=== PATIENT | male | born 1980 | race African-American/Black ===

== ENCOUNTER 2018-05-21 18:11 | Inpatient (IN) ==
[2018-05-21] MEDS ORDERED: SODIUM CHLORIDE 0.9% 500 ML IV STA (18:34)
[2018-05-21] MEDS ORDERED: ALUM/MAG/SIMETH/LIDO VISC 1:1 30 ML BOTTLE PO STA (18:34)
[2018-05-21] MEDS ORDERED: ONDANSETRON 4 MG/2 ML VIAL IV STA (18:34)
[2018-05-21] MEDS ORDERED: PANTOPRAZOLE 40 MG VIAL IV STA (18:34)
[2018-05-21] MEDS ORDERED: HYDROmorphone 2 MG/1 ML VIAL IV STA (18:34)
[2018-05-21 19:13] LABS: Basophils % 0.2 % (0.0-0.8); Eosinophils # 0.1 10*3/uL (0.0-0.87); Eosinophils % 0.5 % (0.00-10.9); Hematocrit 46.7 VOL% (42.0-52.0); Hemoglobin 15.1 GM/DL (14.0-18.0); Immature Granulocytes % 0.4 %; Immature Granulocytes Absolute 0.04 #; Lymphocytes # 1.6 10*3/uL (1.4-4.0); Lymphocytes % 17.5 % (21.2-54.2); Mean Corpuscular HGB Conc 32.3 GM/DL (32-36); Mean Corpuscular Hemoglobin 26 PG (27-34); Mean Corpuscular Volume 79.2 FL (87-102); Mean Platelet Volume 11.7 FL (9.6-12.0); Monocytes # 0.6 10*3/uL (0.11-0.8); Monocytes % 6.2 % (1.7-12.7); Neutrophils % 75.2 % (38.7-73.9); Platelet Count 226 T/CUMM (130-400); Red Cell Distribution Width 11.9 % (9.3-17.3); White Blood Count 9.4 T/CUMM (4-12)
[2018-05-21 19:42] LABS: Alanine Aminotransferase 32 U/L (16-61); Alkaline Phosphatase 112 U/L (45-117); Amylase 94 U/L (25-115); Aspartate Amino Transferase 17 U/L (0-37); Blood Urea Nitrogen 13 MG/DL (7-18); Calcium 9.7 MG/DL (8.5-10.1); Glucose 306 MG/DL (74-106); Potassium 3.9 MMOL/L (3.5-5.1); Sodium 136 MMOL/L (136-145); Total Protein 8.5 G/DL (6.4-8.3)
[2018-05-21 19:49] LABS: Lactic Acid 3.3 MMOL/L (0.4-2.0)
[2018-05-21] MEDS ORDERED: PIPERACILLIN/TAZOBACTAM 3,375 MG in SODIUM CHLORIDE 0.9% 100 ML IV STA (20:04)
[2018-05-21 21:08] LABS: Apearance,Urine CLEAR (Clear); Bilirubin,Urine Negative (Negative); Blood, Urine Negative (Negative); Glucose,Urine (UA) >=500 mg/dL (Negative); Granular Casts,Urine 1 /LPF (0-1); Hyaline Casts,Urine 1 /LPF (0-3); Ketones,Urine 5 mg/dL (Negative); Nitrite,Urine Negative (Negative); Protein,Urine 100 MG/DL; RBC,Urine 1 /HPF (0-4); Squamous Epithelial Cell,Urine Occasional /HPF (0-10); Urine Color Yellow (Yellow); Urine Specific Gravity > 1.060 (1.001-1.035); Urine Urobilinogen < 2.0 EU/DL (0.2-1.0); WBC,Urine 1 /HPF (0-6)
[2018-05-21] MEDS ORDERED: ACETAMINOPHEN 325 MG TABLET PO PRN (21:54)
[2018-05-21] MEDS ORDERED: ONDANSETRON 4 MG/2 ML VIAL IV PRN ×2 (21:54→22:25)
[2018-05-21] MEDS ORDERED: hydrALAZINE 20 MG/1 ML VIAL IV STA ×2 (22:13→22:34)
[2018-05-21] MEDS: HYDROmorphone 2 MG/1 ML VIAL IV PRN ×2 (22:30→22:35)
[2018-05-21] MEDS: LACTATED RINGERS 1,000 ML IV SCH (23:30)
[2018-05-21] MEDS ORDERED: PROPOFOL 200 MG/20 ML VIAL IV ONE (23:31)
[2018-05-21] MEDS ORDERED: SEVOFLURANE 1 UNIT/15 MINUTE INH ONE (23:31)
[2018-05-21] MEDS ORDERED: fentaNYL 100 MCG/2 ML VIAL ONE (23:31)
[2018-05-21] MEDS ORDERED: LIDOCAINE 2% TOP JELLY 5 ML TUBE TOP ONE (23:31)
[2018-05-21] MEDS ORDERED: ONDANSETRON 4 MG/2 ML VIAL ONE (23:32)
[2018-05-21] MEDS ORDERED: KETOROLAC 30 MG/1 ML VIAL ONE (23:32)
[2018-05-21] MEDS ORDERED: PHENYLEPHRINE 0.5% NASAL SPRAY 15 ML BOTTLE BOTH NARES ONE (23:32)
[2018-05-21] MEDS ORDERED: MIDAZOLAM 2 MG/2 ML VIAL ONE (23:32)
[2018-05-21] MEDS ORDERED: DEXAMETHASONE 10 MG/1 ML VIAL ONE (23:32)
[2018-05-21] MEDS ORDERED: LACTATED RINGERS 2,000 ML IV ONE (23:33)
[2018-05-21] MEDS ORDERED: ROCURONIUM 100 MG/10 ML VIAL IV ONE (23:33)
[2018-05-21] MEDS ORDERED: GLYCOPYRROLATE 0.4 MG/2 ML VIAL ONE (23:33)
[2018-05-21] MEDS ORDERED: NEOSTIGMINE 10 MG/10 ML VIAL ONE (23:33)
[2018-05-21] MEDS ORDERED: SUCCINYLCHOLINE 200 MG/10 ML VIAL ONE (23:33)
[2018-05-21] MEDS ORDERED: ACETAMINOPHEN 1,000 MG/100 ML VIAL IV ONE (23:33)
[2018-05-22] MEDS: KETOROLAC 15 MG/1 ML VIAL IV SCH ×5 (00:04→23:30)
[2018-05-22] MEDS ORDERED: PNEUMOCOCCAL VACCINE (23 VALENT) 0.5 ML VIAL IM ONE (00:46)
[2018-05-22] MEDS: LACTATED RINGERS 1,000 ML IV SCH ×3 (05:01→22:02)
[2018-05-22 05:30] LABS: Calcium 8.5 MG/DL (8.5-10.1); Osmolality,Calculated 284.1 MOS/KG (273-304)
[2018-05-22 05:33] LABS: Basophils % 0.1 % (0.0-0.8); Hematocrit 42.4 VOL% (42.0-52.0); Hemoglobin 13.4 GM/DL (14.0-18.0); Immature Granulocytes % 0.4 %; Immature Granulocytes Absolute 0.04 #; Lymphocytes # 0.5 10*3/uL (1.4-4.0); Lymphocytes % 5.6 % (21.2-54.2); Mean Corpuscular HGB Conc 31.6 GM/DL (32-36); Mean Corpuscular Hemoglobin 25 PG (27-34); Mean Platelet Volume 12.1 FL (9.6-12.0); Monocytes # 0.1 10*3/uL (0.11-0.8); Neutrophils # 8.5 10*3/uL (1.4-7.4); Neutrophils % 92.9 % (38.7-73.9); Platelet Count 208 T/CUMM (130-400); Red Cell Distribution Width 11.7 % (9.3-17.3); White Blood Count 9.2 T/CUMM (4-12)
[2018-05-22 06:40] LABS: Anisocytosis Slight; Band Neutrophils 4 % (0-10); Lymphocytes 4 % (20-55); Macrocytosis Slight; Platelet Estimate Normal; Segmented Neutrophils 90 % (50-85); Total Cells Counted 100
[2018-05-22] MEDS: PANTOPRAZOLE 40 MG TABLET PO SCH (08:24)
[2018-05-22] MEDS: PIPERACILLIN/TAZOBACTAM 3,375 MG in SODIUM CHLORIDE 0.9% 100 ML IV SCH ×4 (08:30→23:33)
[2018-05-22] MEDS: MORPHINE 4 MG/1 ML VIAL IV PRN ×2 (15:17→19:27)
[2018-05-22] MEDS: INSULIN LISPRO 100 UNIT/ML SUBCUT SCH ×2 (16:48→20:59)
[2018-05-22] MEDS: amLODIPine 10 MG TABLET PO SCH (18:20)
[2018-05-23] MEDS: LACTATED RINGERS 1,000 ML IV SCH ×2 (05:22→13:36)
[2018-05-23] MEDS: KETOROLAC 15 MG/1 ML VIAL IV SCH ×3 (08:33→17:25)
[2018-05-23] MEDS: PIPERACILLIN/TAZOBACTAM 3,375 MG in SODIUM CHLORIDE 0.9% 100 ML IV SCH ×3 (09:50→23:05)
[2018-05-23] MEDS: INSULIN LISPRO 100 UNIT/ML SUBCUT SCH ×4 (09:50→20:39)
[2018-05-23] MEDS: PANTOPRAZOLE 40 MG TABLET PO SCH (09:51)
[2018-05-23] MEDS: amLODIPine 10 MG TABLET PO SCH (09:51)
[2018-05-24] MEDS: KETOROLAC 15 MG/1 ML VIAL IV SCH ×2 (00:45→05:39)
[2018-05-24] MEDS: LACTATED RINGERS 1,000 ML IV SCH ×2 (05:39)
[2018-05-24] MEDS: INSULIN LISPRO 100 UNIT/ML SUBCUT SCH (08:12)
[2018-05-24] MEDS: PIPERACILLIN/TAZOBACTAM 3,375 MG in SODIUM CHLORIDE 0.9% 100 ML IV SCH (08:12)
[2018-05-24] MEDS: amLODIPine 10 MG TABLET PO SCH (08:13)
[2018-05-24] MEDS: PANTOPRAZOLE 40 MG TABLET PO SCH (08:13)
[2018-05-24 08:43] VITALS: BP 137/84
== END 2018-05-24 11:25 | disposition home or self-care (01) | DRG 355 ==
LOC: N.ED 18:11 → N.3E 20:48 → N.EDINP 21:54 → N.3E 23:20
PROVIDERS: ADMIT Surgery; ATTEND Surgery